=== PATIENT | female | born 1995 | race Asian ===

== ENCOUNTER 2018-05-26 05:42 | Emergency (ER) | payer BC, OTHER ==
[~2018-05-26] VITALS: Ht 175.3 cm; Wt 127.8 kg
[2018-05-26 05:43] VITALS: BP 151/72
[2018-05-26] MEDS ORDERED: KETOROLAC 30 MG/1 ML ONE (06:10)
[2018-05-26] MEDS ORDERED: ONDANSETRON ODT 4 MG ONE (06:10)
[2018-05-26] MEDS ORDERED: CYCLOBENZAPRINE 10 MG TABLET ONE (06:10)
[2018-05-26] MEDS ORDERED: CYCLOBENZAPRINE 10 MG TABLET PO ONE (06:30)
[2018-05-26] MEDS ORDERED: KETOROLAC 60 MG/2 ML IM ONE (06:30)
[2018-05-26] MEDS ORDERED: ONDANSETRON ODT 4 MG PO ONE (06:30)
== END 2018-05-26 06:41 | disposition home or self-care (01) ==
LOC: ED 06:35
DX: G44.219 Episodic tension-type headache, not intractable (principal)
CPT/HCPCS: 96372; 99283; J1885; Q0162